=== PATIENT | female | born 1965 | race Caucasian/White ===

== ENCOUNTER 2019-07-30 23:31 | Emergency (ER) | payer OTHER ==
[~2019-07-30] VITALS: Ht 162.6 cm; Wt 86.2 kg
[2019-07-30 23:50] VITALS: BP_SYST 187
--- NOTE | 2019-07-30 23:50 | NUR ---
Placed in room 07 . Placed on electronic device monitor, blood pressure machine and pulse oximeter. To gown for exam. Side rails up. Report given to Sp VALLE.
--- NOTE | 2019-07-31 00:08 | NUR ---
Pt presents to ER with with c/o chest pain. Pt A&Ox4. Pt states chest pain began 3 hours ago. Pt describes pain as shooting and tightness. Pt states pain is 8/10. Pt states she was just prescribed new diabetes and hypertension medications and took it for the first time today. Pt states new medications are metformin 500 mg, atenolol 50 mg and Lisinopril 2.5 mg. Upon assessment, chest pain is midsternal. Pt denies nausea, vomiting, chills and SOB.
--- NOTE | 2019-07-31 00:08 | NUR ---
ER Dr. Montanez at bedside examining patient.
[2019-07-31] MEDS ORDERED: KETOROLAC TROMETHAMINE 30 MG VIAL IVP ONE (00:15)
--- NOTE | 2019-07-31 00:25 | NUR ---
radiology at bedside.
--- NOTE | 2019-07-31 00:30 | NUR ---
# 20 gauge angiocath placed to L forearm. Use of asceptic technique. Opsite placed over site. Blood return noted. Blood for lab drawn from site. Flushed with 10 cc of normal saline. No evidence of infiltration noted. Patient tolerated well.
[2019-07-31 01:01] LABS: EOSINOPHILS # (AUTO) 0.4 K/uL (0.0-0.4); RED BLOOD CELL COUNT(AUTO) 4.66 MIL/uL (4.2-6.2)
[2019-07-31 01:06] LABS: BASOPHILS # (AUTO) 0.1 K/uL (0.0-0.2); BASOPHILS % (AUTO) 0.5 % (0.0-2.0); EOSINOPHILS % (AUTO) 3.2 % (0.0-4.0); HEMATOCRIT 42.8 % (36-48); HEMOGLOBIN 14.4 g/dL (12.0-16.0); LYMPHOCYTES # (AUTO) 4.1 K/uL (1.0-5.5); LYMPHOCYTES % (AUTO) 32.5 % (20.5-51.5); MEAN CORPUSCULAR HEMOGLOBIN 31 pg (27-31); MEAN CORPUSCULAR HGB CONC 34 % (32-36); MEAN CORPUSCULAR VOLUME 92 fL (79.0-98.0); MONOCYTES % (AUTO) 7.7 % (1.7-9.3); NEUTROPHILS # (AUTO) 7.1 K/uL (1.8-7.7); NEUTROPHILS % (AUTO) 56.1 % (40.0-70.0); PLATELET COUNT (AUTO) 305 K/uL (130-430); WHITE BLOOD COUNT (AUTO) 12.7 K/uL (4.8-10.8)
[2019-07-31 01:12] LABS: CALCIUM 8.4 mg/dL (8.4-11.0); CREATININE 0.76 mg/dL (0.55-1.30); POTASSIUM 3.9 mmol/L (3.5-5.1)
[2019-07-31 01:17] LABS: ALBUMIN 3.7 g/dL (3.4-4.8); TOTAL BILIRUBIN 0.2 mg/dL (0.0-1.0)
--- NOTE | 2019-07-31 01:41 | NUR ---
Patient given written and verbal discharge instructions and verbalizes understanding. ER MD Montanez discussed with patient the results and treatment provided. Patient in stable condition. ID arm band removed. IV catheter removed intact and dressing applied, no active bleeding. Rx of Motrin, Prednisone given. Patient educated on pain management and to follow up with PMD. Pain Scale 0. Opportunity for questions provided and answered. Medication side effect fact sheet provided.
[2019-07-31 01:42] VITALS: BP_SYST 132
== END 2019-07-31 01:41 | disposition home or self-care (01) ==
LOC: SED 23:31
DX: R07.9 Chest pain, unspecified (principal); R05 Cough; I10 Essential (primary) hypertension; E11.9 Type 2 diabetes mellitus without complications; F17.290 Nicotine dependence, other tobacco product, uncomplicated
CPT/HCPCS: 71045; 36415; 80053; 84484; 85025; 93005; 96374; 99284; J1885